=== PATIENT | female | born 1990 | race Caucasian/White ===

== ENCOUNTER 2023-05-11 20:29 | Observation (INO) | payer OTHER, MEDICAID, SELFPAY ==
[2023-05-11] VITALS (12 sets, daily range): BP systolic 108–146; BP diastolic 63–101; PULSE 79–100; RESP 16–18; TEMP 36.4–37.4; O2SAT 96–98; BMI 27.5; BMI 27.1
[2023-05-11 16:04] LABS: Color, Urine Yellow (Yellow); Glucose, Dipstick Normal (Normal); Ketone-Dipstick 50 mg/dl (Negative); Leukocyte Esterase-Dipstick 25 /ul (Negative); Nitrite-Dipstick Positive (Negative); Occult Blood-Urine 10 /ul (Negative); Protein-Dipstick 30 mg/dl (Negative); Specific Gravity, Urine 1.015 (1.002-1.030); Urine Clarity Clear (Clear); Urine Urobilinogen 4 mg/dl (Normal)
--- NOTE | 2023-05-11 16:08 | US_ITS ---
INDICATION: Lower right back pain EXAMINATION: Ultrasound US Kidney(s) complete (eg, kidneys and bladder) TECHNIQUE: Garcia scale and color doppler images were obtained of the kidneys. COMPARISON: None. FINDINGS: RIGHT KIDNEY: 12.0 x 6.6 x 5.9 cm. Moderate hydronephrosis present. 4 mm nonshadowing calculus in the interpolar region. Cortical echotexture is unremarkable. LEFT KIDNEY: 11.9 x 6.5 x 4.1 cm. Mild hydronephrosis. No shadowing calculus, focal lesion or perinephric collection is demonstrated. Cortical echotexture unremarkable. URINARY BLADDER: No acute abnormality. Gravid uterus incidentally noted. US/Kidney and Bladder IMPRESSION: Bilateral hydronephrosis, right side more severe than left. Nonobstructing right renal calculus. Electronically Signed: Shan Nicolas MD at 19:04 EST ,
[2023-05-11 16:36] LABS: Urine Bilirubin Dipstick 3 mg/dL (Negative)
[2023-05-11] MEDS: Lactated Ringers 1,000 ML 999 ML IV (16:37)
[2023-05-11 18:12] LABS: Absolute Lymphocyte Count 0.81 X10^3/uL (0.83-4.51); Absolute Neutrophil Count 15.1 X10^3/uL (2.0-7.7); Basophil# 0.06 X10^3/uL; Basophil% 0.4 % (0-1); Eosinophil# 0.01 X10^3/uL; Eosinophils% 0.1 % (0-5); Hematocrit 28.1 % (37-47); Hemoglobin 9.5 g/dL (12.0-15.0); Lymphocyte # 0.81 X10^3/ul (0.83-4.51); Lymphocyte % 4.7 % (19-41); Mean Corp Hgb Conc 33.8 g/dL (32-36); Mean Corpuscular Hgb 28.6 pg (27.0-32.0); Mean Corpuscular Volume 84.6 fL (81-99); Mean Platelet Vol. 11.8 fl (6.2-12.0); Monocyte# 0.99 X10^3/uL; Monocyte% 5.8 % (0-10); NRBC Flagged by Analyzer 0 % (0-5); Neutrophil # 15.06 X10^3/uL (2.7-7.7); Neutrophil % 87.8 % (47-70); Platelet Count 133 K/mm3 (150-450); RBC Distribution Width CV 13.2 % (11.6-14.6); RBC Distribution Width SD 40.2 fl (35.1-43.9); Red Blood Count 3.32 M/mm3 (4.2-5.4); White Blood Count 17.1 K/mm3 (4.4-11.0)
[2023-05-11 18:27] LABS: ALB/GLOB Ratio 0.8 RATIO (0.9-2.4); AST(SGOT) 16 U/L (15-37); Alanine Aminotransfer ALT/SGPT 11 U/L (13-56); Albumin, Serum 2.9 g/dL (3.2-5.0); Alkaline Phosphatase 85 U/L (45-117); Anion Gap 9 (5-15); BUN 10 mg/dL (7-18); BUN/Creat Ratio 12.1 RATIO (10-20); Calcium,Total 8.4 mg/dL (8.5-10.1); Chloride 109 mmol/L (98-107); Creatinine, Serum 0.83 mg/dL (0.55-1.02); EST Glomerular Filtration Rate 84 mL/min (>60); Est Glom Filt Rate - Afr Amer 102 mL/min (>60); Estimated Creatinine Clearance 97.06 ml/min; Globulin 3.6 g/dL (2.2-4.2); Glucose 101 mg/dL (74-106); Potassium 3.8 mmol/L (3.5-5.1); Protein, Total 6.5 g/dL (6.4-8.2); Sodium Level 138 mmol/L (136-145)
[2023-05-11] MEDS: Oxycodone/Apap 5/325 Tablet PO (18:29)
--- NOTE | 2023-05-11 20:34 | PCM.HP.OB ---
HPI - General General Date of Admission: 05/11/23 Date of Service: 05/11/23 Chief Complaint: 32 week gestation, kidney stone, pyelonephritis HPI Narrative MOON TRACY, is a 32 F at 32 week gestation who presents with right flank pain. 2 days ago she had urinary frequency and dysuria. Urine cx at that time was negative. She went into [place] ER this morning for worsened right flank pain, and had labs completed and she was given 1 dose of Ancef. She presented to [facility] ER with the right sided flank pain after being discharged from [place] [facility]. She is having nausea and vomiting that she attributes to the pain. The right flank pain is traveling into her right groin. She feels subjectively warm. No chills or malaise. No ctx, vb, lof. No change in BM's. Not eating and drinking well. Good FM. PFSH PFSH Allergy/AdvReac Type Severity Reaction Status Date / Time No Known Allergies Allergy Verified 05/11/23 14:15 Vital Signs Vital Signs Vital Signs: 05/11/23 14:16 05/11/23 14:20 05/11/23 14:22 Temperature 97.5 F L 97.5 F L 97.5 F L Temperature Source Temporal Temporal Temporal Pulse Rate 92 92 90 Respiratory Rate 18 18 16 Blood Pressure 146/101 H 146/101 H 126/71 H Blood Pressure Mean 116 116 89 BP Systolic BP Diastolic Pulse Ox 05/11/23 15:21 05/11/23 15:21 05/11/23 15:36 Temperature Temperature Source Pulse Rate 79 Respiratory Rate Blood Pressure 114/67 109/63 Blood Pressure Mean BP Systolic 114 109 BP Diastolic 67 63 Pulse Ox 05/11/23 15:36 05/11/23 15:51 05/11/23 15:51 Temperature Temperature Source Pulse Rate 82 81 Respiratory Rate Blood Pressure 111/73 Blood Pressure Mean BP Systolic 111 BP Diastolic 73 Pulse Ox 05/11/23 16:06 05/11/23 16:06 05/11/23 15:21 Temperature Temperature Source Tympanic Pulse Rate 82 Respiratory Rate Blood Pressure 109/68 Blood Pressure Mean BP Systolic 109 BP Diastolic 68 Pulse Ox 05/11/23 15:21 05/11/23 16:21 05/11/23 16:21 Temperature 98.5 F Temperature Source Pulse Rate 88 Respiratory Rate Blood Pressure 108/67 Blood Pressure Mean BP Systolic 108 BP Diastolic 67 Pulse Ox 05/11/23 19:34 05/11/23 19:34 05/11/23 19:34 Temperature Temperature Source Temporal Pulse Rate 100 Respiratory Rate Blood Pressure 123/68 H Blood Pressure Mean BP Systolic 123 BP Diastolic 68 Pulse Ox 05/11/23 19:34 05/11/23 19:34 Temperature 99.4 F H Temperature Source Pulse Rate Respiratory Rate Blood Pressure Blood Pressure Mean BP Systolic BP Diastolic Pulse Ox 96 Weight Weight: 163 lb Body Mass Index (BMI) 27.1 Labs Labs Labs: Hct 28.1 % (37-47) L Hgb 9.5 g/dL (12.0-15.0) L Assessment & Plan (1) 32 weeks gestation of : PLAN: NST q shift. No OB complaints at this time. (2) Right flank pain: PLAN: Discussed with patient if no improvement tomorrow, will consult urology. (3) Kidney stone complicating : PLAN: Renal ultrasound shows non obstructing kidney stone. Medication for pain control and IVF hydration ordered. (4) Pyelonephritis affecting : PLAN: Temp 99, elevated WBC with left shift, UA showing signs of infection. Urine cx in process and wait for results. Start Ceftriaxone for suspected pyelonephritis. Discussed with pt will need antibiotic prophylaxis for remainder of .
[2023-05-11] MEDS: oxyCODONE 5 MG Tablet PO (22:47)
[2023-05-11] MEDS: Acetaminophen 500 MG Tablet 1000 MG PO (22:48)
[2023-05-11] MEDS: Ceftriaxone 1 GM/50 ML BAG IV (22:49)
[2023-05-11] MEDS: Lactated Ringers 1,000 ML 75 ML IV (22:49)
[2023-05-11] MEDS: 0.9% Saline Lock 10 ML Syringe IV (22:49)
[2023-05-11] MEDS: 0.9% Normal Saline (250mL Bag) 250 ML 15 ML IV (22:51)
[2023-05-11] MEDS: Ondansetron 4 MG/2 ML Vial IV (22:53)
[2023-05-12 04:09] VITALS: BP 120/70; PULSE 91; RESP 16; TEMP 36.6; O2SAT 98
[2023-05-12] MEDS: oxyCODONE 5 MG Tablet PO ×2 (05:14→09:43)
[2023-05-12] MEDS: Acetaminophen 500 MG Tablet 1000 MG PO ×2 (05:14→11:03)
[2023-05-12] MEDS: Ondansetron 4 MG/2 ML Vial IV (05:42)
[2023-05-12 06:45] LABS: Absolute Lymphocyte Count 0.78 X10^3/uL (0.83-4.51); Absolute Neutrophil Count 10.4 X10^3/uL (2.0-7.7); Basophil# 0.03 X10^3/uL; Basophil% 0.2 % (0-1); Eosinophil# 0.09 X10^3/uL; Eosinophils% 0.7 % (0-5); Hemoglobin 8.3 g/dL (12.0-15.0); Lymphocyte # 0.78 X10^3/ul (0.83-4.51); Lymphocyte % 6.1 % (19-41); Mean Corp Hgb Conc 33.2 g/dL (32-36); Mean Corpuscular Hgb 28.7 pg (27.0-32.0); Mean Corpuscular Volume 86.5 fL (81-99); Mean Platelet Vol. 11.9 fl (6.2-12.0); Monocyte# 1.26 X10^3/uL; Monocyte% 9.9 % (0-10); NRBC Flagged by Analyzer 0 % (0-5); Neutrophil % 81.7 % (47-70); Platelet Count 124 K/mm3 (150-450); RBC Distribution Width CV 13.7 % (11.6-14.6); RBC Distribution Width SD 42.7 fl (35.1-43.9); Red Blood Count 2.89 M/mm3 (4.2-5.4); White Blood Count 12.7 K/mm3 (4.4-11.0)
--- NOTE | 2023-05-12 08:05 | PN.OBGYN_ITS ---
Subjective Subjective Patient doing ok. Pain is waxing and waning in right flank and into RLQ. Nausea with the pain. Keeping liquids and small amounts of food down. No vb or lof. No ctx. +FM. She denies fevers or chills. Objective Data Objective Data Vital Signs: Vital Signs Temp Pulse Resp BP Pulse Ox O2 Del Method 97.8 F 91 16 120/70 98 Room Air 05/12/23 04:09 05/12/23 04:09 05/12/23 04:09 05/12/23 04:09 05/12/23 04:09 05/12/23 04:09 Oxygen Delivery Method Room Air Weight: 162 lb 7.691 oz Body Mass Index (BMI) 27.1 Intake & Output: Intake and Output for Last 24 Hours 05/10/23 05/11/23 05/12/23 23:59 23:59 23:59 Intake Total 1063.25 / 1063.25 Output Total 700 / 700 Balance 1063.25 / 1063.25 -700 / -700 Lab / Micro Data 05/12/23 05:57 05/11/23 17:50 Labs: Laboratory Results - last 24 hr 05/11/23 15:30: Urine Color Yellow, Urine Clarity Clear, Urine pH 7.0, Ur Specific [place] 1.015, Urine Protein 30 H, Urine Glucose (UA) Normal, Urine Ketones 50 H, Urine Occult Blood 10 H, Urine Nitrite Positive H, Urine Bilirubin 3 H, Urine Urobilinogen 4 H, Ur Leukocyte Esterase 25 H 05/11/23 17:50: WBC 17.1 H, RBC 3.32 L, Hgb 9.5 L, Hct 28.1 L, MCV 84.6, MCH 28.6, MCHC 33.8, RDW Std Deviation 40.2, RDW Coeff of Janis 13.2, Plt Count 133 L, MPV 11.8, Immature Gran % (Auto) 1.200 H, Neut % (Auto) 87.8 H, Lymph % (Auto) 4.7 L, [place] % (Auto) 5.8, Eos % (Auto) 0.1, Baso % (Auto) 0.4, Absolute Neuts (auto) 15.1 H, Absolute Lymphs (auto) 0.81 L, Nucleated RBC % 0, Sodium 138, Potassium 3.8, Chloride 109 H, Carbon Dioxide 20.0 L, Anion Gap 9, BUN 10, Creatinine 0.83, Estim Creat Clear Calc 97.06, Est GFR (MDRD) Af Amer 102, Est GFR (MDRD) Non-Af 84, BUN/Creatinine Ratio 12.1, Glucose 101, Calcium 8.4 L, Total Bilirubin 0.40, AST 16, ALT 11 L, Alkaline Phosphatase 85, Total Protein 6.5, Albumin 2.9 L, Globulin 3.6, Albumin/Globulin Ratio 0.8 L 05/12/23 05:57: WBC 12.7 H, RBC 2.89 L, Hgb 8.3 L, Hct 25.0 L, MCV 86.5, MCH 28.7, MCHC 33.2, RDW Std Deviation 42.7, RDW Coeff of Janis 13.7, Plt Count 124 L, MPV 11.9, Immature Gran % (Auto) 1.400 H, Neut % (Auto) 81.7 H, Lymph % (Auto) 6.1 L, Spencer % (Auto) 9.9, Eos % (Auto) 0.7, Baso % (Auto) 0.2, Absolute Neuts (auto) 10.4 H, Absolute Lymphs (auto) 0.78 L, Nucleated RBC % 0 Radiography Diagnostic Testing: Radiology Impression Renal Ultrasound 05/11/23 16:08 IMPRESSION: Bilateral hydronephrosis, right side more severe than left. Nonobstructing right renal calculus. Electronically Signed: Shan Nicolas MD at 19:04 EST Reading Location ID and State: [facility] / [place] Tel , Service support , Physical Exam Const alert and no apparent distress Constitutional Narrative: Had a wave of pain while present in the room Resp normal respiratory effort GI soft to palpation, non-tender and non-distended GI Narrative: Non acute Assessment & Plan (1) Kidney stone complicating : PLAN: Patient was given Vicodin in the ER for pain control. Discussed to continue at home PRN, and to push fluids. Will send in Zofran as well per patien t request. (2) Pyelonephritis affecting : PLAN: S/p 1 dose of Ceftriaxone. Remains afebrile and WBC trending down. Discussed 2 weeks of Keflex and will wait for urine cx results. Discussed need for daily suppression in if cx positive. [facility] has given her 1 week of Keflex - will send in another 7 days. (3) Right flank pain: PLAN: Discussed with pain ok for discharge to home today. Offered to call urology today for another opinion but patient feels comfortable going home. To follow up in office. (4) 32 weeks gestation of : PLAN: NST today before discharge.
--- NOTE | 2023-05-12 08:12 | DCINST_ITS ---
Discharge Instructions Diet Discharge Diet: No restrictions Activity Discharge Activity: Return to Normal Activity Ice area for (Minutes): 15 Dressing / Incision Call your doctor if you observe: Fever of 101 or Higher, Inability to urinate, Shortness of breath, Chest pain, Uncontrolled pain and - (inability to tolerate food or liquids) Follow Up Care When: Call the office on Sunday05/14/23. Test Results: Test results from this visit will be discussed in further detail at your follow- up appointment, if applicable. Discharge Plan Admission Admit Date/Time: 05/11/23 22:12 Attending Provider: Dominique English Primary Care Provider: Care Physician,No Primary Instructions Patient Instructions: ED Pyelonephritis, Female (Adult), ED Kidney Stone with Pain Discharge Orders/Prescriptions Prescriptions: New ondansetron 4 mg tablet,disintegrating 4 mg PO Q6H PRN (Reason: nausea and vomiting) Qty: 10 0RF cephalexin 500 mg capsule 500 mg PO TID 7 Days Qty: 21 0RF Referrals / Follow Up: Care Physician,No Primary [Primary Care Provider] - Disposition Disposition (needs filled in before D/C Order can be placed): Home, Self Care
--- NOTE | 2023-05-12 08:15 | DS.PCM_ITS ---
Providers Date of Admission: 05/11/23 Date of Discharge: 05/12/23 Primary Care Physician: No Primary Care Phys Reason For Visit: KIDNEY STONE, PYELONEPHRITIS Diagnosis Discharge Diagnosis (1) Kidney stone complicating : Status: Acute Code(s): O26.839 - related renal disease, unspecified trimester; N20.0 - Calculus of kidney Plan: Patient was given Vicodin in the ER for pain control. Discussed to continue at home PRN, and to push fluids. Will send in Zofran as well per patient request. (2) Pyelonephritis affecting : Status: Acute Code(s): O23.00 - Infections of kidney in , unspecified trimester Plan: S/p 1 dose of Ceftriaxone. Remains afebrile and WBC trending down. Discussed 2 weeks of Keflex and will wait for urine cx results. Discussed need for daily suppression in if cx positive. [place] ER has given her 1 week of Keflex - will send in another 7 days. (3) Right flank pain: Status: Acute Code(s): R10.9 - Unspecified abdominal pain Plan: Discussed with pain ok for discharge to home today. Offered to call urology today for another opinion but patient feels comfortable going home. To follow up in office. (4) 32 weeks gestation of : Status: Acute Code(s): Z3A.32 - 32 weeks gestation of Plan: NST today before discharge. Medications at Discharge Home Medications cephalexin 500 mg capsule 500 mg PO TID 7 days #21 caps 05/12/23 ondansetron 4 mg disintegrating tablet 4 mg PO Q6H PRN nausea and vomiting #10 tabs 05/12/23 Hospital Course Summary of Care Provided Minutes Spent on Discharge: 10 Hospital Course: Patient presented to the ER at 32 weeks of with right-sided flank pain. Her white blood cell count was slightly elevated. Urine analysis was concerning for infection. Renal ultrasound was obtained showing a nonobstructing right renal calculus. She was admitted for kidney stone, and possible pyelonephritis and was given IVF hydration, pain control, and ceftriaxone. Her white blood cell count improved. She remained afebrile. She was discharged to home with Keflex and Zofran. She was at an outside ER in [place] previously and was prescribed 1 week of Keflex and Vicodin as needed for pain. Discussed to take Keflex for total of 14 days. To follow-up in the office on Sunday. Weight / BMI Weight Weight: 162 lb 7.691 oz Body Mass Index (BMI) 27.1 ABG / Lab / Microbiology Data 05/12/23 05:57 05/11/23 17:50 Laboratory: Laboratory Results - last 24 hr 05/11/23 15:30: Urine Color Yellow, Urine Clarity Clear, Urine pH 7.0, Ur Specific [place] 1.015, Urine Protein 30 H, Urine Glucose (UA) Normal, Urine Ketones 50 H, Urine Occult Blood 10 H, Urine Nitrite Positive H, Urine Bilirubin 3 H, Urine Urobilinogen 4 H, Ur Leukocyte Esterase 25 H 05/11/23 17:50: WBC 17.1 H, RBC 3.32 L, Hgb 9.5 L, Hct 28.1 L, MCV 84.6, MCH 28.6, MCHC 33.8, RDW Std Deviation 40.2, RDW Coeff of Janis 13.2, Plt Count 133 L, MPV 11.8, Immature Gran % (Auto) 1.200 H, Neut % (Auto) 87.8 H, Lymph % (Auto) 4.7 L, [place] % (Auto) 5.8, Eos % (Auto) 0.1, Baso % (Auto) 0.4, Absolute Neuts (auto) 15.1 H, Absolute Lymphs (auto) 0.81 L, Nucleated RBC % 0, Sodium 138, Potassium 3.8, Chloride 109 H, Carbon Dioxide 20.0 L, Anion Gap 9, BUN 10, C reatinine 0.83, Estim Creat Clear Calc 97.06, Est GFR (MDRD) Af Amer 102, Est GFR (MDRD) Non-Af 84, BUN/Creatinine Ratio 12.1, Glucose 101, Calcium 8.4 L, Total Bilirubin 0.40, AST 16, ALT 11 L, Alkaline Phosphatase 85, Total Protein 6.5, Albumin 2.9 L, Globulin 3.6, Albumin/Globulin Ratio 0.8 L 05/12/23 05:57: WBC 12.7 H, RBC 2.89 L, Hgb 8.3 L, Hct 25.0 L, MCV 86.5, MCH 28.7, MCHC 33.2, RDW Std Deviation 42.7, RDW Coeff of Janis 13.7, Plt Count 124 L, MPV 11.9, Immature Gran % (Auto) 1.400 H, Neut % (Auto) 81.7 H, Lymph % (Auto) 6.1 L, [place] % (Auto) 9.9, Eos % (Auto) 0.7, Baso % (Auto) 0.2, Absolute Neuts (auto) 10.4 H, Absolute Lymphs (auto) 0.78 L, Nucleated RBC % 0 Radiography Diagnostic Testing: Radiology Impression Renal Ultrasound 05/11/23 16:08 IMPRESSION: Bilateral hydronephrosis, right side more severe than left. Nonobstructing right renal calculus. Electronically Signed: Shan Nicolas MD at 19:04 EST , D/C Instructions Discharge Diet: No restrictions Ice area for (Minutes): 15 Call your doctor if you observe: Fever of 101 or Higher, Inability to urinate, Shortness of breath, Chest pain, Uncontrolled pain and - (inability to tolerate food or liquids) When: Call the office on Sunday05/14/23. Meaningful Use Info Meaningful Use Diagnoses (Choose all that apply): None applicable Discharge Plan Admission Admit Date/Time: 05/11/23 22:12 Attending Provider: Dominique English Primary Care Provider: Care Physician,No Primary Instructions Patient Instructions: ED Pyelonephritis, Female (Adult), ED Kidney Stone with Pain Discharge Orders/Prescriptions Prescriptions: New ondansetron 4 mg tablet,disintegrating 4 mg PO Q6H PRN (Reason: nausea and vomiting) Qty: 10 0RF cephalexin 500 mg capsule 500 mg PO TID 7 Days Qty: 21 0RF Referrals / Follow Up: Care Physician,No Primary [Primary Care Provider] - Disposition Disposition (needs filled in before D/C Order can be placed): Home, Self Care
[2023-05-12 09:33] VITALS: BP 110/63; PULSE 82; RESP 20; TEMP 37; O2SAT 98
--- NOTE | 2023-05-12 09:39 | CASEMGMT ---
RN?CM?SPIRITUAL CARE COORDINATOR?CM?to room to meet with patient for initial transition planning/care coordination?assessment.?RN?CM?introduced self and role at [facility].? Pt voices understanding and consents to?assessment?at this time.? Pt resting in bed in no distress at this time.? Pt is A/O at this time and answers all questions appropriately.?? Care providers, pharmacy, and demographics verified/updated at this time. PCP: No PCP. Provided w/PCP directory Specialists: Zach Preferred Pharmacy:[facility] Insurance: [employer] Prescription Benefit:?I think so. Living Will/HPOA:?Pt does not currently have LW/HCPOA LNOK: Mother, Kit Living Arrangements: Lives w/boyfriend and 6-yr-old son. Independent. Works full-time. Transportation:?Pt states drives self and states no transportation concerns at this time.? DME: ? Denies using any DME and denies needs.? Pt wishes to return home and states has no concerns with going home at time of discharge.? PLAN:??Home Elana FABIANN?RN?CM
[2023-05-12] MEDS: 0.9% Saline Lock 10 ML Syringe IV (09:49)
== END 2023-05-12 11:11 | disposition home or self-care (01) | DRG 832 ==
LOC: MS3 22:16 → WPOUT 22:17 → MS3 22:17
PROVIDERS: Admitting Provider Obstetrics & Gynecology; Visit Provider Obstetrics & Gynecology
DX: O23.03 Infections of kidney in pregnancy, third trimester (principal); O26.833 Pregnancy related renal disease, third trimester; N10 Acute pyelonephritis; N20.0 Calculus of kidney; Z3A.32 32 weeks gestation of pregnancy
CPT/HCPCS: 36415; 59025; 59050; 76770; 80053; 81002; 85025; 87086; 87088; 96361; 96365; 96375; 96376; 99221; J7050; J7120; A4216; G0378; J2405

== ENCOUNTER 2023-07-20 07:16 | Inpatient (IN) | payer OTHER, MEDICAID, SELFPAY ==
[2023-05-11 15:21] VITALS: RESP 16
[2023-05-11 19:34] VITALS: RESP 16
[2023-05-11 21:24] VITALS: RESP 16
[2023-07-20] VITALS (40 sets, daily range): BP systolic 87–151; BP diastolic 41–84; PULSE 75–123; RESP 16–17; TEMP 36.3–37.9; O2SAT 87–100; BMI 30.2; BMI 30.7
--- NOTE | 2023-07-20 07:48 | PCM.HP.OB ---
HPI - General General Date of Admission: 07/20/23 HPI Narrative MOON TRACY, is a 32 F @ 40.4 weeks gestation who presents for elective induction of labor. Maternal Data Information MARÍA ELENA Calculator Estimated Delivery Date Method Current WG Current Estimate 07/16/23 Manual 40w 4d PFSH [facility] Medical History (Updated 07/20/23 @ 07:56 by Beatriz Perea CNM) Anemia Anxiety Former smoker Kidney stones Home Medications valacyclovir 500 mg tablet 500 mg PO BID Prophalactic 07/20/23 [History Last Taken 07/19/23] Allergy/AdvReac Type Severity Reaction Status Date / Time No Known Allergies Allergy Verified 07/20/23 07:53 Social History Smoking Status: Former smoker ROS Eyes Eyes: Denies blurry vision, change in vision or spots in vision ENT HEENT: Denies dizziness or headache(s) Cardiovascular Cardiovascular: Denies abdominal pain, chest pain or dyspnea Respiratory/Chest Respiratory/Chest: Denies cough, dyspnea, shortness of breath at rest or shortness of breath with exertion Gastrointestinal Gastrointestinal: Denies abdominal pain, diarrhea or vomiting Genitourinary Genitourinary: Denies change in urinary stream, difficulty urinating or dysuria Musculoskeletal Musculoskeletal: Reports none Integumentary Integumentary: Denies rash Neurologic Neurologic: Denies dizziness, headache(s), memory loss or weakness Psychiatric Psychiatric: Reports none Vital Signs Vital Signs Vital Signs: 07/20/23 06:20 07/20/23 06:20 07/20/23 06:24 Temperature Temperature Source Pulse Rate 90 Blood Pressure 131/75 H BP Systolic 131 BP Diastolic 75 Pulse Ox 98 07/20/23 06:24 07/20/23 07:25 07/20/23 07:25 Temperature Temperature Source Pulse Rate 86 80 Blood Pressure 138/74 H BP Systolic 138 BP Diastolic 74 Pulse Ox 07/20/23 07:25 07/20/23 07:25 Temperature 98.0 F Temperature Source Tympanic Pulse Rate Blood Pressure BP Systolic BP Diastolic Pulse Ox Physical Exam Const alert, oriented x3 and no apparent distress General Appearance: cooperative Orientation / Consciousness: awake Exam Limitations: no limitations HEENT normocephalic Head and Scalp: normal to inspection Eyes General Eye: normal appearance of both eyes Neck full ROM and no lymphadenopathy Lymph Lymphatic: no lymphadenopathy noted Chest inspection of chest normal Resp normal respiratory effort, normal air movement and clear to auscultation bilaterally Effort and Inspection: able to speak in complete sentences and symmetric chest movement Cardio regular rate and regular rhythm GI normal to inspection, nondistended, normoactive bowel sounds Manual OB Exam: presentation cephalic, dilated 4, effaced 80 and station 0 Amniotic Fluid: clear amniotic fluid Back/Spine normal ROM Extremity full ROM and no calf tenderness Skin no rashes or lesions noted General Skin Exam: no breakdown Neuro oriented x3 and CN's II-XII intact bilaterally Psych mental status grossly normal and thought process normal Labs Labs Labs: Blood Type Pending Antibody Screen Pending Hct 29.4 % (37-47) L Hgb 9.8 g/dL (12.0-15.0) L Syphilis Total Ab Pending Assessment & Plan (1) 40 weeks gestation of : (2) History of herpes genitalis: (3) Gestational thrombocytopenia: (4) Anemia affecting : (5) Encounter for induction of labor: PLAN: Plan Admit to labor and delivery Routine labs Start IV and run fluids per orders CE /-3 Start Pitocin at 2 mu/min and increase per policy Epidural when indicated
[2023-07-20] MEDS: Lactated Ringers 1,000 ML 50 ML IV (08:00)
[2023-07-20 08:11] LABS: Absolute Lymphocyte Count 1.13 X10^3/uL (0.83-4.51); Absolute Neutrophil Count 9.8 X10^3/uL (2.0-7.7); Basophil# 0.04 X10^3/uL; Basophil% 0.3 % (0-1); Eosinophils% 1.6 % (0-5); Hematocrit 29.4 % (37-47); Hemoglobin 9.8 g/dL (12.0-15.0); Lymphocyte # 1.13 X10^3/ul (0.83-4.51); Mean Corp Hgb Conc 33.3 g/dL (32-36); Mean Platelet Vol. 12.8 fl (6.2-12.0); Monocyte# 1.18 X10^3/uL; Monocyte% 9.4 % (0-10); NRBC Flagged by Analyzer 0 % (0-5); Neutrophil # 9.77 X10^3/uL (2.7-7.7); Neutrophil % 77.9 % (47-70); Platelet Count 119 K/mm3 (150-450); RBC Distribution Width CV 14.7 % (11.6-14.6); RBC Distribution Width SD 44.7 fl (35.1-43.9); White Blood Count 12.6 K/mm3 (4.4-11.0)
[2023-07-20 08:49] LABS: Syphilis Antibodies Non-reactive
[2023-07-20] MEDS: LACTATED RINGERS 500 ML 999 ML IV (08:56)
[2023-07-20] MEDS: Oxytocin 15 Units/NS 250ml 15 UNITS/250 ML IV.SOLN 2 UNITS IV (08:59)
[2023-07-20] MEDS: fentaNYL-bupivacaine (epidural) 100 ML BAG EPIDURAL ×2 (09:30→13:42)
[2023-07-20] MEDS: Lactated Ringers 1,000 ML 200 ML IV (13:30)
[2023-07-20] MEDS: Acetaminophen 500 MG Tablet PO (18:30)
--- NOTE | 2023-07-20 18:48 | EX.PCM.OBRPT ---
Assessment & Plan (1) Maternal fever during labor: (2) (spontaneous vaginal delivery): (3) Encounter for induction of labor: (4) Anemia affecting : (5) Gestational thrombocytopenia: (6) 40 weeks gestation of : Maternal Data Information MARÍA ELENA Calculator Estimated Delivery Date Method Current WG Current Estimate 07/16/23 Manual 40w 4d [place] Doctor Who Attended Delivery: Jamilah Renee Vaginal Delivery Maternal Presentation Maternal Presentation: Elective Induction Maternal Presentation: for elective induction of labor. Type of Induction: Pitocin Operative Information Date of Procedure: 07/20/23 Pre-Operative Diagnosis: Term gestation, induction of labor Post-Operative Diagnosis: Same, , Live female Surgery / Procedure Performed: Spontaneous Vaginal Delivery Type of Anesthesia: Epidural Estimated Blood Loss: 300 Time of Delivery: 18:35 Findings Description of Procedure: Patient pushing well with contractions. Provided bedside support during pushing. With maternal effort, head delivered followed by anterior shoulder and remainder of without downward traction. Thick meconium fluid noted. initially with poor tone. Cord clamped and cut and handed to awaiting nursery staff. Pitocin IV started for active management of the third stage of labor. Cord blood collected and sent. Placenta delivered spontaneously and intact. Placenta stained meconium. Vagina and perineum intact. Vaginal sweep completed.Fundus is firm 2 below U. EBL 300 cc. APGARS 8/9. Patient recently started on IV antibiotics for suspected triple I. Patient's temperature was 101.0 F. Placenta sent to pathology. Dr. Souza notified of delivery. Presentation: Vertex Amniotic Membrane Rupture Type: Spontaneous Time of Membrane Rupture: 1103 Amniotic Fluid Description: Thick meconium Placental Delivery Description: Spontaneous Placenta Disposition: Sent to Pathology Cord Vessel Description: 3 Vessels Cord Entanglement: None A Gender: Female (1 minute): 8 (5 minute): 9 Delayed Cord Clamping: No Post Vaginal Delivery Medications Given After Delivery: IV Pitocin Episiotomy Description: None Laceration: None Complication Complications: None
[2023-07-20] MEDS: Gentamicin IV 290 MG in Dextrose 5%-Water (50mL Bag) 50 ML 100 MG IVPB (19:15)
[2023-07-20] MEDS: Oxytocin 15 Units/NS 250ml 15 UNITS/250 ML IV.SOLN 83 UNITS IV (19:48)
[2023-07-20] MEDS: Ampicillin 2 GM in 0.9% Normal Saline (100mL MB+) 100 ML IV (19:50)
--- NOTE | 2023-07-20 20:13 | PLAC_PTH ---
PATIENT: MOON TRACY LOC: [facility] U#:[id number] AGE/SX: 32/F ROOM: [facility] RE07/20/[address]: Beatriz Perea CNM : 1990 BED: 1 DIS: 07/21/2023 SPEC #: [id number] RECD: 07/23/23 08:09 STATUS: HOLLIE KRYSTEN #: [id number] ABRAHAM: 07/20/23 20:[address]: Beatriz Perea DEPT: SURGICAL PATHOLOGY RECD BY: Heber Garcia ENTERED: 07/23/23 08:10 SP TYPE: PLACENTA OTHR DR: No Primary Care Phys Tissues: Placenta, NOS Procedures: Surgery Specimen Level V HEADER OPERATION: Vaginal delivery PRE-OP DIAGNOSIS: Maternal temperature during labor/ Meconium stained TISSUE SUBMITTED: Placenta MICROSCOPIC DIAGNOSIS Placenta: Placental disc - third trimester placenta (495 gm). - Focal area of intraparenchymal hemorrhage (1cm in greatest dimension). - Focal increased perivillous and intervillous fibrin deposition. - Acute vasculitis of subamniotic blood vessels. Membranes - Acute chorioamnionitis. Umbilical cord - three blood vessels and acute funisitis. SJ: 07/25/23 MICROSCOPIC DESCRIPTION Slides are reviewed. GROSS DESCRIPTION SPECIMEN: PLACENTA / CLINICAL INFORMATION: A. Weight: 3.505 kg B. Gestational Age: 40 weeks C. Sex: Female PLACENTAL WEIGHT (POST FIXATION): 495 gm PLACENTAL DIMENSIONS: 19.0 x 19.0 x 3.0 cm PLACENTAL SHAPE: Usual ovoid PLACENTAL WEIGHT FOR GESTATIONAL AGE: Within 10-99th percentile MEMBRANES - Present A. Insertion: Marginal B. Site of rupture from edge: up to 4.0 cm from edge of placental disc C. Color of membrane: Hansen-greenish consistent with meconium staining D. Abnormalities: None UMBILICAL CORD - Present A. Color: Hansen-roach B. Insertion: Marginal C. Length: 32.0 cm D. Diameter: 1.2 cm E. Number of vessels: Three F. Abnormalities: None PLACENTAL DISC - Present A. Color of surface: Hansen-roach B. surface abnormalities: None C. Maternal cotyledons: Intact with minimal tears D. Attached retro placental clot: No clot E. Cut surface: Dark red and spongy F. Lesions: A hansen indurated lesion measuring 1.0cm in greatest dimension G. Separate clot: Absent SECTIONS SUBMITTED: 1. Membrane roll 2. Cord, maternal end 3. Cord, end 4. Placental disc, and maternal surfaces, lesion 5. Placental disc, and maternal surfaces 6. Placental disc, and maternal surfaces SJ/mr 07/24/23 TC:2 CPT: 58230
[2023-07-20] MEDS: Ibuprofen 600 MG Tablet PO (21:26)
[2023-07-20 21:46] LABS: Pathology Specimen OB SEE PATHOLOGY REPORT
[2023-07-21] MEDS: Ampicillin 2 GM in 0.9% Normal Saline (100mL MB+) 100 ML IV (02:08)
[2023-07-21] MEDS: Acetaminophen 500 MG Tablet 1000 MG PO (02:18)
[2023-07-21 03:20] VITALS: BP 104/72; PULSE 65; RESP 16; TEMP 36.6; O2SAT 98
[2023-07-21 06:46] LABS: Absolute Lymphocyte Count 1.38 X10^3/uL (0.83-4.51); Absolute Neutrophil Count 14.9 X10^3/uL (2.0-7.7); Basophil# 0.07 X10^3/uL; Basophil% 0.4 % (0-1); Eosinophil# 0.16 X10^3/uL; Eosinophils% 0.9 % (0-5); Hematocrit 25.8 % (37-47); Hemoglobin 8.4 g/dL (12.0-15.0); Lymphocyte # 1.38 X10^3/ul (0.83-4.51); Lymphocyte % 7.4 % (19-41); Mean Corp Hgb Conc 32.6 g/dL (32-36); Mean Corpuscular Hgb 27.6 pg (27.0-32.0); Mean Corpuscular Volume 84.9 fL (81-99); Mean Platelet Vol. 12.9 fl (6.2-12.0); Monocyte# 1.71 X10^3/uL; Monocyte% 9.2 % (0-10); NRBC Flagged by Analyzer 0 % (0-5); Neutrophil # 14.94 X10^3/uL (2.7-7.7); Neutrophil % 80.6 % (47-70); POSITIVE DIFFERENTIAL YES; Platelet Count 104 K/mm3 (150-450); RBC Distribution Width SD 45.7 fl (35.1-43.9); Red Blood Count 3.04 M/mm3 (4.2-5.4); White Blood Count 18.5 K/mm3 (4.4-11.0)
[2023-07-21 06:49] LABS: Differential Indicated SCAN CRITERIA MET
[2023-07-21 08:02] VITALS: BP 115/72; PULSE 85; RESP 16; TEMP 36.4; O2SAT 98
--- NOTE | 2023-07-21 09:18 | PCM.DC.SUM ---
Providers Date of Admission: 07/20/23 Primary Care Physician: No Primary Care Phys Reason For Visit: LABOR/DEL Diagnosis Discharge Diagnosis (1) Maternal fever during labor: Status: Acute Code(s): O75.2 - Pyrexia during labor, not elsewhere classified (2) (spontaneous vaginal delivery): Status: Acute Code(s): O80 - Encounter for full-term uncomplicated delivery (3) Encounter for induction of labor: Status: Acute Code(s): Z34.90 - Encounter for supervision of normal , unspecified, unspecified trimester (4) Anemia affecting : Status: Acute Code(s): O99.019 - Anemia complicating , unspecified trimester (5) Gestational thrombocytopenia: Status: Acute Code(s): O99.119 - Other diseases of the blood and blood-forming organs and certain disorders involving the immune mechanism complicating , unspecified trimester; D69.6 - Thrombocytopenia, unspecified (6) Care and examination of lactating mother: Status: Acute Code(s): Z39.1 - Encounter for care and examination of lactating mother Medications at Discharge Home Medications acetaminophen 500 mg tablet 1,000 mg (2 x 500 mg) PO Q6H PRN PRN Pain 1-10 Or Fever #0 tabs 07/21/23 ibuprofen 600 mg tablet 600 mg PO Q6H PRN PRN Pain Score 1-10 #0 tabs 07/21/23 Hospital Course Operations None Procedures None Summary of Care Provided Minutes Spent on Discharge: 15 Hospital Course: Patient had . Hospital course was unevenful. Physical Exam Narrative Patient seen at bedside. Feeling good. Denies pain. Ambulating and voiding without difficulty. Lochia is minimal. One isolated temperature in labor. Nothing further. Desires discharge home at 24 hours. Weight / BMI Weight Weight: 185 lb Body Mass Index (BMI) 30.7 ABG / Lab / Microbiology Data 07/21/23 06:25 Laboratory: Laboratory Results - last 24 hr 07/21/23 06:25: WBC 18.5 H, RBC 3.04 L, Hgb 8.4 L, Hct 25.8 L, MCV 84.9, MCH 27.6, MCHC 32.6, RDW Std Deviation 45.7 H, RDW Coeff of Janis 15.0 H, Plt Count 104 L, MPV 12.9 H, Immature Gran % (Auto) 1.500 H, Neut % (Auto) 80.6 H, Lymph % (Auto) 7.4 L, Sebastian % (Auto) 9.2, Eos % (Auto) 0.9, Baso % (Auto) 0.4, Absolute Neuts (auto) 14.9 H, Absolute Lymphs (auto) 1.38, Nucleated RBC % 0 Meaningful Use Info Meaningful Use Meaningful Use Diagnoses (Choose all that apply): None applicable Ischemic Stroke Statin Dosing Therapy Reference: STATIN DOSE THERAPY REFERENCE: * Patients > 75 years receive moderate or high dose statin therapy. * Patients 75 years or YOUNGER should receive HIGH intensity statin dose unless contraindicated. You will be required to document reason for non-treatment if statin daily dose does not meet guidelines. HIGH DOSE STATIN THERAPY DAILY Atorvastatin > than or = to 40 mg Rosuvastatin > than or = to 20 mg Amlodipine + Atorvastatin > than or = to 2.5/40 mg Ezetimibe + Simvastatin 10/80 mg Simvastatin 80mg Discharge Plan Admission Admit Date/Time: 07/20/23 07:16 Primary Reason for Your Visit: Labor and Delivery Attending Provider: Beatriz Perea Primary Care Provider: Care Physician,No Primary Discharge Orders/Prescriptions Prescriptions: New acetaminophen 500 mg Tablet 1,000 mg PO Q6H PRN PRN (Reason: Pain 1-10 Or Fever) Qty: 0 0RF ibuprofen 600 mg Tablet 600 mg PO Q6H PRN PRN (Reason: Pain Score 1-10) Qty: 0 0RF Discontinued valacyclovir 500 mg tablet 500 mg PO BID Referrals / Follow Up: Beatriz Perea CNM [Med Staff - Adv Practice Prof] - Care Physician,No Primary [Primary Care Provider] - Disposition Disposition (needs filled in before D/C Order can be placed): Home, Self Care
[2023-07-21 10:02] LABS: Differential Comment SCANNED
[2023-07-21 12:02] VITALS: BP 119/72; PULSE 87; RESP 16; TEMP 36.7; O2SAT 98
[2023-07-21 16:48] VITALS: BP 120/77; PULSE 90; RESP 16; TEMP 36.6; O2SAT 99
[2023-07-23 10:15] LABS: Pathologist Review Reviewed
--- NOTE | 2023-07-25 17:34 | NURSING ---
Follow up phone call done, patient states she is doing well since being home. Denies any pain, headaches, visual disturbances, flu like symptoms, or baby blues. States her bleeding is minimal. Wai is well every 2-3 hours without difficulty. Denies any questions at this time.
== END 2023-07-21 20:02 | disposition home or self-care (01) | DRG 807 ==
LOC: WPOUT 07:28 → WP 07:28
PROVIDERS: Obstetrics & Gynecology; Admitting Provider Advanced Practice Midwife; Referring Provider Advanced Practice Midwife; Visit Provider Advanced Practice Midwife
DX: O75.2 Pyrexia during labor, not elsewhere classified (principal); Z37.0 Single live birth; O77.0 Labor and delivery complicated by meconium in amniotic fluid; Z3A.40 40 weeks gestation of pregnancy; Z79.899 Other long term (current) drug therapy; Z87.891 Personal history of nicotine dependence
CPT/HCPCS: 59050; 85025; 86780; 86850; 86900; 86901; 88307; 99221; G0378